=== PATIENT | female | born 1940 | race Caucasian/White ===

== ENCOUNTER 2017-03-27 13:28 | Emergency (ER) | payer MEDICARE, BC ==
[~2017-03-27] VITALS: Ht 162.6 cm; Wt 57.6 kg
[2017-03-27] MEDS ORDERED: TRAM50 PO (13:53)
[2017-03-27] MEDS ORDERED: CLON1 PO (13:54)
[2017-03-27 13:59] LABS: BASOPHILS ABSOLUTE AUTO 0.03 K/mm3 (0.00-0.23); BASOPHILS PERCENT AUTO 1 % (0-2); EOSINOPHILS ABSOLUTE AUTO 0.06 K/mm3 (0.00-0.68); EOSINOPHILS PERCENT AUTO 1 % (0-6); Hematocrit 40.1 % (33.0-51.0); Hemoglobin 12.8 g/dL (11.5-16.0); IMMATURE GRAN ABSOLUTE AUTO 0.01 K/mm3 (0.00-0.10); IMMATURE GRAN PERCENT AUTO 0 % (0-1); LYMPHOCYTES ABSOLUTE AUTO 1.84 K/mm3 (0.84-5.20); LYMPHOCYTES PERCENT AUTO 29 % (21-46); MONOCYTES PERCENT AUTO 6 % (4-13); Mean Corpuscular HGB Conc 31.9 g/dL (31.5-36.5); Mean Corpuscular Volume 91 fL (80-100); Mean Platelet Volume 11.2 fL (9.1-12.4); NEUTROPHILS ABSOLUTE AUTO 3.94 K/mm3 (1.96-9.15); NEUTROPHILS PERCENT AUTO 63 % (41-73); Platelet Count 180 K/mm3 (150-400); RDW Standard Deviation 43.8 fL (35.1-46.3); Red Blood Cell Count 4.42 M/mm3 (3.80-5.20); White Blood Cell Count 6.28 K/mm3 (4.00-11.30)
[2017-03-27 14:16] LABS: Source, Urine Clean Catch
[2017-03-27 14:20] LABS: Appearance, Urine Clear (Clear); Bilirubin, Urine Neg (Neg); Blood, Urine Neg (Neg); Color, Urine Yellow (P-Yellow); Glucose Qualitative, Urine Neg (Neg); Ketones, Urine Neg (Neg); Leukocyte Esterase, Urine 2+ (Neg); Nitrite, Urine Neg (Neg); Protein, Urine Neg (Neg); Specific Gravity, Urine 1.015 (1.003-1.022); Urobilinogen, Urine 1+ (Normal)
[2017-03-27 14:26] LABS: Alanine Aminotransfer (ALT/SGP 16 U/L (12-78); Albumin, Blood 3.7 g/dL (3.4-5.0); Alk Phos 72 U/L (50-136); Anion Gap 5 mmol/L (6-16); Aspartate Aminotrans (AST/SGOT 19 U/L (12-37); Bilirubin, Total 0.5 mg/dL (0.1-1.0); Blood Urea Nitrogen 11 mg/dL (8-24); Bun/Creatinine Ratio 13.9 (12.0-20.0); CO2, Blood 30 mmol/L (21-32); Chloride, Blood 107 mmol/L (98-108); Creatinine, Blood 0.79 mg/dL (0.40-1.00); Ethanol (Alcohol), Blood, Med <3 mg/dL; Globulin, Blood 3.7 g/dL (2.2-4.0); Glomerular Filtration Rate >60 (60-); Glucose, Blood 92 mg/dL (70-99); Potassium, Blood 3.5 mmol/L (3.5-5.5); Salicylate <1.7 mg/dL (2.8-20.0); Sodium, Blood 142 mmol/L (136-145); Total Protein, Blood 7.4 g/dL (6.4-8.2)
[2017-03-27 14:31] LABS: Bacteria Few /hpf; Red Blood Cells, Urine 0-2 /hpf (0-2); Squamous Epithelial Cells Few /hpf (Few)
[2017-03-27 14:31] LABS: Acetaminophen, Random < 1.7 ug/mL (10.0-30.0)
[2017-03-27 14:42] LABS: U Amphetamine Screen Not Detected; U Barbituate Screen Not Detected; U Benzodiazapine Screen DETECTED; U Buprenorphine Screen Not Detected; U Cannabinoids Screen Not Detected; U Cocaine Screen Not Detected; U Methadone Screen Not Detected; U Methamphetamine Screen Not Detected; U Opiates Screen Not Detected; U Oxycodone Screen Not Detected; U Phencyclidine Screen Not Detected; U Propoxyphene Screen Not Detected
== END 2017-03-27 19:25 | disposition home or self-care (01) ==
LOC: ER 13:28
PROVIDERS: Physician Assistant
DX: Z00.8 Encounter for other general examination (principal); F99 Mental disorder, not otherwise specified; R45.851 Suicidal ideations; Z79.899 Other long term (current) drug therapy; Z90.89 Acquired absence of other organs
CPT/HCPCS: 80053; 81001; 84436; 84443; 85025; 87086; 99284; G0480

== ENCOUNTER → 2019-06-14 | Outpatient (CLI) | payer MEDICARE, BC ==
[~2019-06-14] MED LIST: CLON1 PO; TRAM50 PO
== END | disposition home or self-care (01) ==
LOC: LAB SHORT 19:00 → LAB EV 19:00
DX: J06.9 Acute upper respiratory infection, unspecified (principal)
CPT/HCPCS: U0003

== ENCOUNTER → 2021-06-21 | Outpatient (CLI) | payer MEDICARE, BC, OTHER | END | disposition home or self-care (01) | LOC: LAB 11:54 → LAB SHORT 11:54 | DX: S80.811A Abrasion, right lower leg, initial encounter (principal) | CPT/HCPCS: 87070; 87205 ==

== ENCOUNTER → 2023-12-13 | Outpatient (CLI) | payer MEDICARE, BC ==
[2023-12-14 15:25] LABS: U Amphetamine Screen Not Detected; U Barbituate Screen Not Detected; U Benzodiazapine Screen Not Detected; U Buprenorphine Screen Not Detected; U Cannabinoids Screen Not Detected; U Cocaine Screen Not Detected; U Methadone Screen Not Detected; U Methamphetamine Screen Not Detected; U Opiates Screen Not Detected; U Oxycodone Screen Not Detected; U Phencyclidine Screen Not Detected
== END ==
LOC: LAB 17:30 → LAB SHORT 17:30
PROVIDERS: Family Medicine
DX: G89.4 Chronic pain syndrome (principal); Z79.899 Other long term (current) drug therapy

== ENCOUNTER 2024-05-01 12:14 | Day surgery (SDC) | payer MEDICARE, BC ==
[~2024-05-01] VITALS: Ht 167.6 cm; Wt 53.3 kg
[~2024-05-01 12:14] MED LIST changes: +FentaNYL Citrate 50 MCG/ML 2 ML Injection ONE; +Midazolam HCl 1MG / ML 2ML Vial ONE; +NS 500 ML IV ONE; +propofoL 0 ML IV ONE
[2024-05-01] MEDS ORDERED: Lidocaine HCl 2% 10 ML SDA ONE (12:29)
[2024-05-01] MEDS ORDERED: CITALOPRAM HBR20 M9 PO (12:46)
[2024-05-01] MEDS ORDERED: NEURONTIN300 MG (12:46)
[2024-05-01] MEDS ORDERED: DESVENLAFAXINE100 M3 PO (12:46)
[2024-05-01] MEDS ORDERED: HYDROCODONE-AC1 EA19 PO (12:46)
[2024-05-01] MEDS ORDERED: LOSARTAN POTASS25 M2 PO (12:46)
[2024-05-01] MEDS ORDERED: DORZOLAMIDE-TIM10 ML (12:47)
[2024-05-01] MEDS ORDERED: BRIMONIDINE TART5 M2 (12:47)
[2024-05-01] MEDS ORDERED: LATANOPROST2.5 M3 (12:47)
--- NOTE | 2024-05-01 12:50 | NUR ---
05/01/24 1250 Princess Pollock 1242: TIMEOUT 1242: INJECTION BY DR HAY OF 6 CC OF MIX OF 9 CC LIDOCAINE 1% WITH EPI 1:100,000 WITH 1 CC SODIUM BICARB
[2024-05-01] MEDS ORDERED: NS 500 ML IV ONE (13:11)
[2024-05-01] MEDS ORDERED: propofoL 20 ML IV ONE (13:13)
[2024-05-01] MEDS ORDERED: HydrALAZINE HCl 20 MG / ML 1ML Vial ONE (13:43)
--- NOTE | 2024-05-01 13:53 | NUR ---
05/01/24 1353 Judy Hollis PT TO PACU, MDA AT BEDSIDE. INITAL BP 190/91, MDA AWARE. STATED TO GIVE HER A FEW MINUTES TO SEE IF BP COMES DOWN, THEN TREAT WITH MEDICATION. PATIENT AAOX4. PATIENT DENIES PAIN OR NAUSEA AT THIS TIME. PATIENT RESTING IN BED, NO ACUTE DISTRESS NOTED AT THIS TIME.
[2024-05-01 14:59] VITALS: BP 179/69
== END 2024-05-01 15:13 | disposition home or self-care (01) ==
LOC: ORSCSDS 12:14
PROVIDERS: Orthopaedic Surgery
PROC: 0LB50ZZ Excision of Right Lower Arm and Wrist Tendon, Open Approach (ICD-10-PCS; principal; 2024-05-01 13:30)
DX: R22.31 Localized swelling, mass and lump, right upper limb (principal); M67.431 Ganglion, right wrist; I10 Essential (primary) hypertension; Z79.899 Other long term (current) drug therapy
CPT/HCPCS: 88304; J0360; J2003; J2250; J2704; J3010; J7040

== ENCOUNTER 2024-08-12 12:42 | Emergency (ER) | payer MEDICARE, BC ==
[~2024-08-12] VITALS: Ht 162.6 cm; Wt 51.7 kg
[~2024-08-12 12:42] MED LIST changes: +BRIMONIDINE TART5 M2; +CITALOPRAM HBR20 M9 PO; +DESVENLAFAXINE100 M3 PO; +DORZOLAMIDE-TIM10 ML; -FentaNYL Citrate 50 MCG/ML 2 ML Injection ONE; +HYDROCODONE-AC1 EA19 PO; +LATANOPROST2.5 M3; +LOSARTAN POTASS25 M2 PO; -Midazolam HCl 1MG / ML 2ML Vial ONE; +NEURONTIN300 MG; -NS 500 ML IV ONE; -propofoL 0 ML IV ONE
[2024-08-12 13:21] LABS: BASOPHILS ABSOLUTE AUTO 0.02 K/mm3 (0.00-0.23); BASOPHILS PERCENT AUTO 0 % (0-2); EOSINOPHILS ABSOLUTE AUTO 0.07 K/mm3 (0.00-0.68); EOSINOPHILS PERCENT AUTO 1 % (0-6); Hematocrit 38.9 % (33.0-51.0); IMMATURE GRAN ABSOLUTE AUTO 0.01 K/mm3 (0.00-0.10); IMMATURE GRAN PERCENT AUTO 0 % (0-1); LYMPHOCYTES ABSOLUTE AUTO 1.43 K/mm3 (0.84-5.20); LYMPHOCYTES PERCENT AUTO 22 % (21-46); MONOCYTES ABSOLUTE AUTO 0.34 K/mm3 (0.16-1.47); MONOCYTES PERCENT AUTO 5 % (4-13); Mean Corpuscular HGB 30.7 pg (26.0-34.0); Mean Corpuscular HGB Conc 33.4 g/dL (31.5-36.5); Mean Corpuscular Volume 92 fL (80-100); Mean Platelet Volume 11.9 fL (9.1-12.4); NEUTROPHILS ABSOLUTE AUTO 4.53 K/mm3 (1.96-9.15); NEUTROPHILS PERCENT AUTO 71 % (41-73); Platelet Count 150 K/mm3 (150-400); RDW Coefficient Variation 12.2 % (11.7-14.2); RDW Standard Deviation 41.1 fL (35.1-46.3); Red Blood Cell Count 4.24 M/mm3 (3.80-5.20)
[2024-08-12 13:28] LABS: Source, Urine Clean Catch
[2024-08-12 13:35] LABS: Appearance, Urine Clear (Clear); Bilirubin, Urine Neg (Neg); Blood, Urine 1+ (Neg); Color, Urine Yellow (P-Yellow); Glucose Qualitative, Urine Neg (Neg); Ketones, Urine Neg (Neg); Leukocyte Esterase, Urine Neg (Neg); Nitrite, Urine Neg (Neg); Protein, Urine 1+ (Neg); Specific Gravity, Urine 1.025 (1.003-1.022); Urobilinogen, Urine NORM (Normal)
[2024-08-12 13:41] LABS: Bacteria Rare /hpf; Red Blood Cells, Urine 0-2 /hpf (0-2); Squamous Epithelial Cells Rare /hpf (Few); White Blood Cells, Urine 0-2 /hpf (0-5)
[2024-08-12 13:45] LABS: Albumin, Blood 3.6 g/dL (3.4-5.0); Albumin/Globulin Ratio 1.1 (0.8-1.8); Bilirubin, Total 0.4 mg/dL (0.1-1.0); Bun/Creatinine Ratio 18.7 (12.0-20.0); Calcium, Blood 9.4 mg/dL (8.5-10.1); Creatinine, Blood 0.75 mg/dL (0.40-1.00); Globulin, Blood 3.2 g/dL (2.2-4.0); Potassium, Blood 3.9 mmol/L (3.5-5.5); Total Protein, Blood 6.8 g/dL (6.4-8.2)
[2024-08-12] MEDS ORDERED: PROBIOTIC1 EA13 PO (16:41)
[2024-08-12 16:45] VITALS: BP 43/13
[2024-08-12 18:17] LABS: Campylobacter Sp Not Detected (NOT DETECT); Cryptosporidium Not Detected (NOT DETECT); Cyclospora Cayetanensis Not Detected (NOT DETECT); E. Coli O157 Not Detected (NOT DETECT); Enteroaggregative E. coli-EAEC Not Detected (NOT DETECT); Enteropathogenic E. coli-EPEC Not Detected (NOT DETECT); Enterotoxigenic E. coli-ETEC Not Detected (NOT DETECT); Plesiomonas Shigelloides Not Detected (NOT DETECT); Salmonella Sp Not Detected (NOT DETECT); Shiga Toxin-prod E. coli-STEC Not Detected (NOT DETECT); Shigella/Enteroin E. coli-EIEC Not Detected (NOT DETECT); Vibrio Cholerae Not Detected (NOT DETECT); Vibrio Sp Not Detected (NOT DETECT); Yersinia Enterocolitica Not Detected (NOT DETECT)
[2024-08-12 18:18] LABS: Adenovirus F 40/41 Not Detected (NOT DETECT); Astrovirus Not Detected (NOT DETECT); Entamoeba Histolytica Not Detected (NOT DETECT); Giardia Lamblia Not Detected (NOT DETECT); Norovirus GI/GII Not Detected (NOT DETECT); Rotavirus A Not Detected (NOT DETECT); Sapovirus Not Detected (NOT DETECT)
[2024-08-16 19:23] LABS: OVA AND PARASITE,FECAL INTERP Negative (Negative)
== END 2024-08-12 16:57 | disposition home or self-care (01) ==
LOC: ER 12:42
PROVIDERS: Emergency Medicine
DX: R19.7 Diarrhea, unspecified (principal); Z88.5 Allergy status to narcotic agent; Z79.899 Other long term (current) drug therapy; Z90.89 Acquired absence of other organs; Z96.643 Presence of artificial hip joint, bilateral
CPT/HCPCS: 74177; 80053; 81001; 83690; 85025; 87177; 87209; 87507; 99284-25; Q9967

== ENCOUNTER → 2024-08-17 | Outpatient (CLI) | payer MEDICARE, BC ==
[~2024-08-17] MED LIST changes: +PROBIOTIC1 EA13 PO
[2024-08-22 08:11] LABS: PANCREATIC ELASTASE,FECAL 26 ug/g (>=100)
== END ==
LOC: LAB SHORT 14:13 → LAB 14:13
PROVIDERS: Physician Assistant
DX: R19.7 Diarrhea, unspecified (principal)
CPT/HCPCS: 82653